=== PATIENT | male | born 1970 | race Hispanic/Latino ===

== ENCOUNTER 2018-04-28 10:54 | Emergency (ER) | payer MEDICAID ==
[2018-04-28 11:15] VITALS: RESP 16; TEMP 97.3
--- NOTE | 2018-04-28 11:35 | C.PDOC ---
History Of Present Illness 48 y/o male with a PMHx of CHF and heroin abuse brought in by EMS for evaluation after he was found unresponsive in [facility]. Patient was given intranasal narcan per EMS and then became alert. On arrival to the ED patient is interactive, awake, alert, and now requesting to leave. He offers no complaints. Admits to snorting heroin earlier today. Denies any chest pain, SOB, headache, fever, or cough. Time Seen by Provider: 04/28/18 11:00 Chief Complaint (Nursing): Substance Abuse History Per: Patient History/Exam Limitations: no limitations Onset/Duration Of Symptoms: Mins Current Symptoms Are (Timing): Gone Modifying Factor(s): Other (Heroin) Additional History Per: EMS Past Medical History Reviewed: Historical Data, Nursing Documentation, Vital Signs Vital Signs: Last Vital Signs Temp 97.3 F L 04/28/18 10:58 Pulse 80 04/28/18 10:58 Resp 16 04/28/18 10:58 BP 140/88 04/28/18 10:58 Pulse Ox 98 04/28/18 10:58 - Medical History PMH: CHF, HTN Other PMH: Substance abuse Family History: States: Unknown Family Hx - Social History Hx Alcohol Use: No Hx Substance Use: Yes - Immunization History Hx Tetanus Toxoid Vaccination: No Hx Influenza Vaccination: No Hx Pneumococcal Vaccination: No Review Of Systems Constitutional: Negative for: Fever, Chills Cardiovascular: Negative for: Chest Pain Respiratory: Negative for: Cough, Shortness of Breath Gastrointestinal: Negative for: Vomiting Neurological: Negative for: Weakness, Headache Psych: Positive for: Other (Heroin use). Negative for: Suicidal ideation Physical Exam - Physical Exam Appears: Non-toxic, No Acute Distress, Other (Obese male, VSS) Skin: Warm, Dry, No Rash Head: Atraumatic, Normacephalic Eye(s): bilateral: Normal Inspection, PERRL, EOMI Neck: Normal ROM Chest: Symmetrical Cardiovascular: Rhythm Regular, No Murmur Respiratory: No Accessory Muscle Use, Rales (Bibasilar), No Wheezing, Other (No respiratory distress) Gastrointestinal/Abdominal: Soft, No Tenderness, No Distention Extremity: Normal ROM, No Calf Tenderness, No Deformity, Swelling (+1 pitting edema bilaterally) Pulses: Left Dorsalis Pedis: Normal, Right Dorsalis Pedis: Normal Neurological/Psych: Other (Awake, Alert, Speaking in full sentences) ED Course And Treatment O2 Sat by Pulse Oximetry: 98 (RA) Pulse Ox Interpretation: Normal Medical Decision Making Medical Decision Making: Impression: Heroin use Patient is AAOx3 with clear speech and ambulates with steady gait in the ED. Will discharge patient home. Disposition Counseled Patient/Family Regarding: Diagnosis - Disposition Disposition: HOME/ ROUTINE Disposition Time: 11:32 Condition: STABLE Forms: General Discharge Instructions, Work Excuse - POA Present On Arrival: None - Clinical Impression Clinical Impression: Drug abuse - Scribe Statement The provider has reviewed the documentation as recorded by the Marsha Hill Provider Attestation: All medical record entries made by the Marsha were at my direction and personally dictated by me. I have reviewed the chart and agree that the record accurately reflects my personal performance of the history, physical exam, medical decision making, and the department course for this patient. I have also personally directed, reviewed, and agree with the discharge instructions and disposition.
[2018-04-28 11:45] VITALS: BP 107/63; PULSE 85
[2018-04-28 11:54] VITALS: O2SAT 98
== END 2018-04-28 12:22 | disposition home or self-care (01) ==
LOC: C.ER 10:54
DX: F19.10 Other psychoactive substance abuse, uncomplicated (principal)